=== PATIENT | male | born 2000 | race Two or more races ===

== ENCOUNTER 2022-02-24 16:23 | Emergency (ER) | payer OTHER ==
[~2022-02-24] VITALS: Ht 167.6 cm; Wt 79.5 kg
[2022-02-24] MEDS ORDERED: ACETAMINOPHEN 500 MG TABLET PO ONE (17:30)
[2022-02-24] MEDS ORDERED: PROPARACAINE HCL 0.5% 15 ML OPHTHALMIC SOLUTION OU ONE (17:30)
[2022-02-24] MEDS ORDERED: FLUORESCEIN SODIUM 1 MG STRIP OU ONE (17:30)
[2022-02-24 21:36] VITALS: BP 100/66
[2022-02-24 21:45] LABS: COVID AG,FIA SOURCE NASAL SWAB
== END 2022-02-24 21:26 | disposition home or self-care (01) ==
LOC: EMS 16:23
DX: H53.9 Unspecified visual disturbance (principal); R51.9 Headache, unspecified; M79.652 Pain in left thigh; Z20.822 Contact with and (suspected) exposure to COVID-19; Z02.2 Encounter for examination for admission to residential institution
CPT/HCPCS: 70450; 72125; 99173; 99284

== ENCOUNTER 2023-08-05 07:05 | Emergency (ER) | payer OTHER ==
[~2023-08-05] VITALS: Ht 167.6 cm; Wt 63.6 kg
[2023-08-05 07:44] VITALS: BP 116/87; PULSE 76; RESP 16; TEMP 97.9
== END 2023-08-05 08:06 | disposition home or self-care (01) ==
LOC: EMS 07:05
CPT/HCPCS: 99281; Z7502